=== PATIENT | male | born 1970 | race Caucasian/White ===

== ENCOUNTER 2024-09-01 04:24 | Emergency (ER) | payer MEDICARE ==
[~2024-09-01] VITALS: Ht 175.3 cm; Wt 130.6 kg
[2024-09-01 04:34] VITALS: RESP 18; TEMP 98.8
[2024-09-01] MEDS: IBUPROFEN 400 MG TAB PO ONE (05:09)
[2024-09-01] MEDS: SODIUM CHLORIDE 0.9% 1000ML 1,000 ML IV ONE (05:25)
[2024-09-01] MEDS: ACETAMINOPHEN 325 MG TAB PO ONE (05:25)
[2024-09-01 06:22] VITALS: PULSE 98
[2024-09-01] MEDS ORDERED: DOXYCYCLINE HY100 MG PO (06:24)
[2024-09-01] MEDS ORDERED: BENZONATATE100 MG PO (06:30)
[2024-09-01 06:33] VITALS: BP 140/99; PULSE 98; RESP 18; TEMP 98.8; O2SAT 96
== END 2024-09-01 06:33 | disposition home or self-care (01) ==
LOC: FSED 05:03
DX: R05.9 Cough, unspecified (principal); J06.9 Acute upper respiratory infection, unspecified; B34.9 Viral infection, unspecified; J01.90 Acute sinusitis, unspecified; E27.1 Primary adrenocortical insufficiency
CPT/HCPCS: 80048; 85025; 99283; J7030